=== PATIENT | female | born 1970 | race Caucasian/White ===

== ENCOUNTER 2016-06-22 20:02 | Outpatient (CLI) | payer OTHER ==
[2015-04-09 00:59] VITALS: BMI 36.6
[2016-06-22 20:18] LABS: BASOPHILS % (AUTO) 0.3 % (0.0-3.0); EOSINOPHILS # (AUTO) 0.2 K/ul (0.0-0.7); EOSINOPHILS % (AUTO) 2.3 % (0.0-7.0); HEMATOCRIT 43.3 % (37.0-47.0); HEMOGLOBIN 14.3 g/dl (12.0-16.0); IMMATURE GRANULOCYTE % (AUTO) 0.3 % (0.0-5.0); MEAN CORPUSCULAR HEMOGLOBIN 27.1 pg (27.0-31.0); MONOCYTES # (AUTO) 0.7 K/uL (0.4-2.0); MONOCYTES % (AUTO) 10.9 (0-10); NEUTROPHILS # (AUTO) 3.6 K/ul (2.0-6.9); NEUTROPHILS % (AUTO) 55.2; PLATELET COUNT 246 10^3/uL (140-440); RED BLOOD COUNT 5.28 10^6/ul (4.20-5.40); WHITE BLOOD COUNT 6.49 K/ul (4.6-10.2)
[2016-06-22 20:35] LABS: FLU INTERNAL QC INTERNAL QC VALID; RAPID FLU A NEGATIVE (NEGATIVE); RAPID FLU B NEGATIVE (NEGATIVE)
[2016-06-22 20:45] LABS: ALBUMIN 4.1 g/dL (3.4-5.0); ALBUMIN/GLOBULIN RATIO 1.21; BILIRUBIN,TOTAL 0.35 mg/dL (0.00-1.20); BUN/CREATININE RATIO 13.97; CALCIUM 9.6 mg/dL (8.2-10.2); CREATININE 0.93 mg/dL (0.60-1.30); TOTAL PROTEIN 7.5 g/dL (6.4-8.2)
--- NOTE | 2016-06-22 21:35 | DI ---
Exam: Two-view chest x-ray. Date: 06/22/2016. Comparison: 03/19/2012. HISTORY: Cough and shortness of breath. FINDINGS: Minor degenerative changes are seen in the thoracic spine. The lungs are clear with calc ified granulomas. Cardiac silhouette and pulmonary vasculature are normal. Impression: No acute intrathoracic findings. Old granulomatous disease.
== END 2016-06-22 20:03 | disposition home or self-care (01) ==
LOC: LAB 20:02
PROVIDERS: ATTEND Internal Medicine Geriatric Medicine
DX: R50.9 Fever, unspecified (principal); R05 Cough
CPT/HCPCS: 36415; 80053; 85025; 87651; 87804; 87880

== ENCOUNTER 2016-12-08 00:03 | Emergency (ER) ==
[2016-12-08 00:27] VITALS: BP 136/92; TEMP 97.8; BMI 39.9
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
== END 2016-12-08 02:00 | disposition home or self-care (01) ==
LOC: ED 00:03
DX: S30.0XXA Contusion of lower back and pelvis, initial encounter (principal); S09.90XA Unspecified injury of head, initial encounter; S19.9XXA Unspecified injury of neck, initial encounter; M79.1 Myalgia; V89.2XXA Person injured in unspecified motor-vehicle accident, traffic, initial encounter; F17.210 Nicotine dependence, cigarettes, uncomplicated
CPT/HCPCS: 99283

== ENCOUNTER 2016-12-18 10:02 | Outpatient (CLI) ==
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
== END 2016-12-18 10:03 | disposition home or self-care (01) ==
LOC: RAD 10:02
PROVIDERS: ATTEND Nurse Practitioner Family
DX: M54.5 Low back pain (principal)

== ENCOUNTER 2017-02-28 09:15 | Outpatient (RCR) ==
--- NOTE | 2017-02-07 15:07 | RS.OPPTDN ---
Subjective Date of Note: 02/07/17 Visit #: 9 Date of Evaluation: 01/16/17 Payer Source: Workman's Comp Treatment Diagnosis: Low back pain Current Subjective/complaints:: Patient says that tingling/numbness remains intermittent to the L LE to the posterior mid thigh. She says she went trick or treating with her grandkids last night and was frustrated that she could only walk short distances and then sit on a scooter to get to other areas of the neighborhood. She says once she stood for the last time to walk, she could barely advance the L or R leg due to them feeling heavy. 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 Pain Assessment - Pain Description Pain Location: low back Current Pain Intensity: 7-8/10 across the low back and into the L hip/SI region - Treatment Modality: Electrical Stim Unattended Parameters/Method Applied: HIVOLT 4 large pads (2 at the L SI region and 2 at the L and R lumbar paraspinals ) @ 170-200 pk volts x 20 mins Patient Position: Right Sidelying - Heat/Cryotherapy Treatment: Hot Pack (with estim ) Interventions - Exercise/Activities/Manual Therapy Exercises/Activities: Continued with gentler stretching to the L LE today: SKTC , heel cords, Hamstrings, lower trunk rotation, piriformis and added figure 4 x 4. Continued with trunk stability of: pillow squeezes 2 x 10. Isometric hip flexion and abd x 10. Educated patient on possible use of lumbar mechanical traction and benefits if referring MD is agreeable as mild anterior subluxation is a precaution. Total minutes of Exercise: 20 Manual Therapy: NA - Charges Total Direct Minutes: 20 Total Treatment Time: 40 Procedures billed for this date of service:: hp, estim (un), ex Assessment: Patient continues with radiating symptoms to the L LE only intermittently now and to the mid posterior thigh. She is unable to ambulate long distances and must sit often. 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 She is against surgical intervention at this time and does not wish to manage pain with progressive medication. She is demo improved luz elena to stretches and shows increased HS length as well as localizing L LE tingling/numbness. She may possibly benefit from gentle Lumbar traction. Patient Education: Education of diagnosis, Body/Joint mechanics, Home Exercise Program, Activity Modification Patient demonstrates compliance with HEP?: Yes Short Term Goals Goal #1: Pt independent in initial HEP. Goal to be met by: 01/31/17 Progress towards Goal:: Met Goal #2: Left LE radiating symptoms localized. Goal to be met by: 01/31/17 Progress towards Goal:: Progressing Goal #3: Pt able to tolerate light ADL's with min. increase in low back pain. Goal to be met by: 01/31/17 Progress towards Goal:: Progressing Goal #4: SLR equal bilaterally. Goal to be met by: 01/31/17 [employer] Operator Goals Goal #1: Pt knows HEP and to continue ex's to maintain functional level at D/C. Goal to be met by: 03/08/17 Goal #2: Score on Oswestry LBP scale improved to 15. Goal to be met by: 03/08/17 Goal #3: Pt able to return to work without limitations. Goal to be met by: 03/08/17 Goal #4: Pt able to tolerate prolonged sitting, standing, and walking w/o back pain. Goal to be met by: 03/08/17 Plan PLAN OF CARE EXPIRES ON:: 03/08/17 ORDER # VISITS AND/OR THROUGH DATE: 03/08/17 PLAN: Progress Exercises (Possible trial of traction)
--- NOTE | 2017-02-09 14:51 | RS.OPPTDN ---
Subjective Date of Note: 02/09/17 Visit #: 10 Date of Evaluation: 01/16/17 Payer Source: Workman's Comp Treatment Diagnosis: Low back pain Current Subjective/complaints:: Patient says she did feel better after last session with trunk rotation to the R, but says she now has burning and tingling feeling to the R SI region with L rotation. Pain Assessment - Pain Description Pain Location: low back Current Pain Intensity: 09/16 - Treatment Modality: Electrical Stim Unattended Parameters/Method Applied: hivolt 4 large pads to the L and R lumbar paraspinals and SI joints x 20 mins @ 200-225 pk volts Patient Position: Prone - Heat/Cryotherapy Treatment: Hot Pack Interventions - Exercise/Activities/Manual Therapy Exercises/Activities: Continued with gentler stretching to the L LE today: SKTC , heel cords, Hamstrings, avoided lower trunk rotation, piriformis and added figure 4 x 4. Continued with trunk stability of: pillow squeezes 2 x 10. Isometric hip flexion and abd x 10. QS x 10 reps. Total minutes of Exercise: 16 Manual Therapy: NA - Charges Total Direct Minutes: 16 Total Treatment Time: 36 Procedures billed for this date of service:: hp, estim (un), ex Assessment: Patient luz elena treatment better today and higher level of estim intensity. Juliet did have temporary tingling to the L LE after laying prone with modalities and preparing for exercises in supine. Once standing, full feeling returned. Pillows were placed so that even though she was prone, she was in neutral position. Patient Education: Education of diagnosis, Body/Joint mechanics, Home Exercise Program Patient demonstrates compliance with HEP?: Yes Short Term Goals Goal #1: Pt independent in initial HEP. Goal to be met by: 01/31/17 Progress towards Goal:: Met Goal #2: Left LE radiating symptoms localized. Goal to be met by: 01/31/17 Progress towards Goal:: Progressing Comments:: Pain is only across low back currently Goal #3: Pt able to tolerate light ADL's with min. increase in low back pain. Goal to be met by: 01/31/17 Progress towards Goal:: Progressing Goal #4: SLR equal bilaterally. Goal to be met by: 01/31/17 [facility] Goals Goal #1: Pt knows HEP and to continue ex's to maintain functional level at D/C. Goal to be met by: 03/08/17 Goal #2: Score on Oswestry LBP scale improved to 15. Goal to be met by: 03/08/17 Goal #3: Pt able to return to work without limitations. Goal to be met by: 03/08/17 Goal #4: Pt able to tolerate prolonged sitting, standing, and walking w/o back pain. Goal to be met by: 03/08/17 Plan PLAN OF CARE EXPIRES ON:: 03/08/17 ORDER # VISITS AND/OR THROUGH DATE: 03/08/17 PLAN: Continue Plan of Care (Patient may benefit from low level lumbar mechanical traction)
--- NOTE | 2017-02-12 16:23 | RS.OPPTDN ---
Subjective Date of Note: 02/12/17 Visit #: 10 Date of Evaluation: 01/16/17 Payer Source: Workman's Comp Treatment Diagnosis: Low back pain Current Subjective/complaints:: Patient says she feels that laying prone seemed to help her at her last visit. She says she began to have some tingling to the hips, but felt pain existed only in her low back/waistline. She requests to lay prone again today due to her feeling reduced back pain and only had mild symptoms across the low back over the weekend. Pain Assessment - Pain Description Pain Location: low back Current Pain Intensity: 3/10, milder today just across the lumbar region and tingling to the hips - Treatment Modality: Electrical Stim Unattended Parameters/Method Applied: hivolt 4 large pads @ 230-245pk volts to the bilateral lumbar paraspinals and 2 to the L SI region x 20 mins Patient Position: Prone - Heat/Cryotherapy Treatment: Hot Pack Interventions - Exercise/Activities/Manual Therapy Exercises/Activities: Continues with passive stretching of bilateral LE: SKTC, HS, Piriformis, Fig 4, x 4. Patient performs: pillow squeezes, isometric hip flexion (in hooklying), isometric hip abd, QS bilaterally x 10. Total minutes of Exercise: 16 Manual Therapy: NA Total minutes of Manual Therapy: na - Charges Total Direct Minutes: 16 Total Treatment Time: 36 Procedures billed for this date of service:: hp, estim (un), ex Assessment: Patient admitting improved back pain to now very light to mild. She experienced tingling to both hips with prone position,but admitted these symptoms were much more tolerable than experiencing the pain being sidelying. She recalls improved ambulation due to decreased pain level today. Patient Education: Education of diagnosis, Body/Joint mechanics Patient demonstrates compliance with HEP?: Yes Short Term Goals Goal #1: Pt independent in initial HEP. Goal to be met by: 01/31/17 Progress towards Goal:: Met Goal #2: Left LE radiating symptoms localized. Goal to be met by: 01/31/17 Progress towards Goal:: Progressing Goal #3: Pt able to tolerate light ADL's with min. increase in low back pain. Goal to be met by: 01/31/17 Progress towards Goal:: Progressing Goal #4: SLR equal bilaterally. Goal to be met by: 01/31/17 Progress towards Goal:: Progressing Assisted Goals Goal #1: Pt knows HEP and to continue ex's to maintain functional level at D/C. Goal to be met by: 03/08/17 Progress towards goal: Progressing Goal #2: Score on Oswestry LBP scale improved to 15. Goal to be met by: 03/08/17 Progress towards goal: Progressing Goal #3: Pt able to return to work without limitations. Goal to be met by: 03/08/17 Goal #4: Pt able to tolerate prolonged sitting, standing, and walking w/o back pain. Goal to be met by: 03/08/17 Plan PLAN OF CARE EXPIRES ON:: 03/08/17 ORDER # VISITS AND/OR THROUGH DATE: 03/08/17 PLAN: Patient to continue with modalities in prone due to patient request. She is to return to Dr. Finch tomorrow for follow up.
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
--- NOTE | 2017-02-16 11:21 | RS.OPPTDN ---
Subjective Date of Note: 02/16/17 Visit #: 12 Date of Evaluation: 01/16/17 Payer Source: Workman's Comp Treatment Diagnosis: Low back pain Current Subjective/complaints:: Patient says her back pain is not C/c presently. She c/o L LE tingling that worsens with prolonged sitting, standing , and walking. She desires to return to work, but also admits that her symptoms would hinder her duties. She is unable to play on the floor with her grandchildren, which bothers her greatly. She continues to have the feeling of L LE give way when tingling magnifies. Juliet plans to contact her orthopaedic (which she was referred to) about other options for control of radicular symptoms in order to return to work and take part in caring and playing with grandchildren. Pain Assessment - Pain Description Pain Location: low back Pain Description: Tightness, Radiating Current Pain Intensity: 3/10, milder today just across the lumbar region,but increased ting to L LE - Treatment Modality: Electrical Stim Unattended Parameters/Method Applied: hivolt 4 large pads 2 at the L SI region/hip, 2 at the lumbar paraspinals @ 165-235 pk volts x 20 mins Patient Position: Right Sidelying Comments: sidelying/prone - Heat/Cryotherapy Treatment: Hot Pack (with estim) Interventions - Exercise/Activities/Manual Therapy Exercises/Activities: Continued with L LE long axis hip distraction 2x4 (1 set prior to stretches and 1 set at end). Continues with passive stretching of bilateral LE: SKTC, HS, Piriformis, Fig 4, x 4. Patient performs: pillow squeezes, isometric hip flexion (in hooklying), isometric hip abd, QS bilaterally x 10. Total minutes of Exercise: 22 Manual Therapy: NA - Charges Total Direct Minutes: 22 Total Treatment Time: 42 Procedures billed for this date of service:: hp, estim (un), ex Assessment: Juliet now presents with only slight to mild LBP, but with return of Patient with unchanged symptoms to the L LE. Leg length is equal today. She is unable to luz elena amb longer than about 500-600 ft. Prolonged sitting is also intolerable. She has had mild relief of back pain, but no significant change in radiating symptoms to the L LE. She will be planning to get an earlier appt with Dr. Patterson to address her continued symptoms. Patient's gait , however, has improved as far as more equal WB and increased to more normal speed today. Patient Education: Education of diagnosis, Activity Modification, Education of Plan of Care Patient demonstrates compliance with HEP?: Yes Short Term Goals Goal #1: Pt independent in initial HEP. Goal to be met by: 01/31/17 Progress towards Goal:: Met Goal #2: Left LE radiating symptoms localized. Goal to be met by: 01/31/17 Progress towards Goal:: Regressing Comments:: Patient has recently felt ting return to the foot mostly posteriorally Goal #3: Pt able to tolerate light ADL's with min. increase in low back pain. Goal to be met by: 01/31/17 Progress towards Goal:: Progressing Goal #4: SLR equal bilaterally. Goal to be met by: 01/31/17 Progress towards Goal:: Progressing Scale Adjuster Goals Goal #1: Pt knows HEP and to continue ex's to maintain functional level at D/C. Goal to be met by: 03/08/17 Progress towards goal: Progressing Goal #2: Score on Oswestry LBP scale improved to 15. Goal to be met by: 03/08/17 Progress towards goal: Progressing Goal #3: Pt able to return to work without limitations. Goal to be met by: 03/08/17 Goal #4: Pt able to tolerate prolonged sitting, standing, and walking w/o back pain. Goal to be met by: 03/08/17 Plan PLAN OF CARE EXPIRES ON:: 03/08/17 ORDER # VISITS AND/OR THROUGH DATE: 03/08/17 PLAN: Patient to make an earlier follow up with Dr. Patterson and address continued concerns. She was encouraged to continue trunk stability exercises for home and may hold treatment after next week.
--- NOTE | 2017-02-19 10:45 | RS.OPPTDN ---
Subjective Date of Note: 02/19/17 Visit #: 14 Date of Evaluation: 01/16/17 Payer Source: Workman's Comp Treatment Diagnosis: Low back pain Current Subjective/complaints:: Patient says she cleaned her house over the weekend and had used her TENS unit the entire time. Juliet says she was trying to increase her WBing so that she can simulate return to work standing. She reports her back was much better with it, but did not improve L LE symptoms. She reports having trouble controlling her bladder and urgency. She says she does not want to rely on pain medication or her TENS, but it does help her back. Pain Assessment - Pain Description Pain Location: low back Pain Description: Tightness, Radiating Current Pain Intensity: 3/10, milder today just across the lumbar region,but increased ting to L LE - Treatment Modality: Electrical Stim Unattended Parameters/Method Applied: hivolt lumbar paraspinals and L SI 4 large pads @ 205 -235 pk volts x 20 mins Patient Position: Right Sidelying - Heat/Cryotherapy Treatment: Hot Pack Interventions - Exercise/Activities/Manual Therapy Exercises/Activities: Continued with passive stretching to bilateral LE: SKTC, HS, Piriformis, heel cords, Fig 4 x 4 each. She performs: QS, Pillow squeezes , isometric hip abd in hooklying, isometric hip flexion x 10. Total minutes of Exercise: 15 Manual Therapy: NA - Charges Total Direct Minutes: 15 Total Treatment Time: 35 Procedures billed for this date of service:: hp, estim (un), ex Assessment: Patient experienced increased pain and tingling/numbness (L LE) with cleaning and prepping her home for Thanksgiving. She relied on her TENS unit for her back and L hip in which she did have relief and not the anticipated pain to her back that she expected, but did have increased tingling/ numbness to the L LE. Patient Education: Body/Joint mechanics, Home Exercise Program Patient demonstrates compliance with HEP?: Yes Short Term Goals Goal #1: Pt independent in initial HEP. Goal to be met by: 01/31/17 Progress towards Goal:: Met Goal #2: Left LE radiating symptoms localized. Goal to be met by: 01/31/17 Progress towards Goal:: Regressing Goal #3: Pt able to tolerate light ADL's with min. increase in low back pain. Goal to be met by: 01/31/17 Progress towards Goal:: Progressing Goal #4: SLR equal bilaterally. Goal to be met by: 01/31/17 Progress towards Goal:: Progressing Intermediate Goals Goal #1: Pt knows HEP and to continue ex's to maintain functional level at D/C. Goal to be met by: 03/08/17 Progress towards goal: Progressing Goal #2: Score on Oswestry LBP scale improved to 15. Goal to be met by: 03/08/17 Progress towards goal: Progressing Goal #3: Pt able to return to work without limitations. Goal to be met by: 03/08/17 Goal #4: Pt able to tolerate prolonged sitting, standing, and walking w/o back pain. Goal to be met by: 03/08/17 Plan PLAN OF CARE EXPIRES ON:: 03/08/17 ORDER # VISITS AND/OR THROUGH DATE: 03/08/17 PLAN: Patient contacting her MD today to see if she can follow up with him sooner due to worsening radiculopathy and limited ADLs/prolonged WBing.
--- NOTE | 2017-02-21 11:45 | RS.OPPTDN ---
Subjective Date of Note: 02/21/17 Visit #: 15 Date of Evaluation: 01/16/17 Payer Source: Workman's Comp Treatment Diagnosis: Low back pain Current Subjective/complaints:: Patient says she was able to sleep in bed for the first time last night after taking Flexeril. She says she was able to sleep longer than she had, but awakened on her stomach which increased her L LE tingling. She admitted improved back pain however. Juliet says she now relies on TENS unit and uses often to perform ADLs/walking. She is eager to attend follow up scheduled for Sunday and discuss Lyrica refill. Pain Assessment - Pain Description Pain Location: low back Pain Description: Tightness, Radiating Current Pain Intensity: 3/10, milder today just across the lumbar region,but increased ting to L LE - Treatment Modality: Electrical Stim Unattended Parameters/Method Applied: IFC to low back and bilateral SI @ 23 pk volts x 20 mins Patient Position: Right Sidelying - Heat/Cryotherapy Treatment: Hot Pack Interventions - Exercise/Activities/Manual Therapy Exercises/Activities: Provided information about ordering extra electrods for her TENS. Continued with passive stretching to bilateral LE: SKTC, HS, Piriformis, heel cords, Fig 4 x 4 each. She performs: QS, Pillow squeezes, isometric hip abd in hooklying, isometric hip flexion x 10. Total minutes of Exercise: 20 Manual Therapy: NA - Charges Total Direct Minutes: 20 Total Treatment Time: 40 Procedures billed for this date of service:: hp, estim(un), ex Assessment: Patient amb with less WBing on L LE today and slower gait. Modified treatment to include IFC to sweep entire LB and hips. She admits improved back pain level after treatment, but no change in radicular symptoms. Moderate muscle guarding is felt at lumbar paraspinals. Patient Education: Education of diagnosis, Body/Joint mechanics, Home Exercise Program Patient demonstrates compliance with HEP?: Yes Short Term Goals Goal #1: Pt independent in initial HEP. Goal to be met by: 01/31/17 Progress towards Goal:: Met Goal #2: Left LE radiating symptoms localized. Goal to be met by: 01/31/17 Progress towards Goal:: No Change Goal #3: Pt able to tolerate light ADL's with min. increase in low back pain. Goal to be met by: 01/31/17 Progress towards Goal:: Progressing Comments:: While using TENS Goal #4: SLR equal bilaterally. Goal to be met by: 01/31/17 Progress towards Goal:: Met Retirement Goals Goal #1: Pt knows HEP and to continue ex's to maintain functional level at D/C. Goal to be met by: 03/08/17 Progress towards goal: Progressing Goal #2: Score on Oswestry LBP scale improved to 15. Goal to be met by: 03/08/17 Progress towards goal: Progressing Goal #3: Pt able to return to work without limitations. Goal to be met by: 03/08/17 Goal #4: Pt able to tolerate prolonged sitting, standing, and walking w/o back pain. Goal to be met by: 03/08/17 Progress towards goal: No Change Plan PLAN OF CARE EXPIRES ON:: 03/08/17 ORDER # VISITS AND/OR THROUGH DATE: 03/08/17 PLAN: Patient to attend follow up Feb 23. May hold further sessions once seeing MD and no significant change to radicular symptoms.
--- NOTE | 2017-02-26 09:54 | RS.OPPTDN ---
Subjective Date of Note: 02/23/17 Visit #: 15 Date of Evaluation: 01/16/17 Payer Source: Workman's Comp Treatment Diagnosis: Low back pain Current Subjective/complaints:: Patient says she attended follow up this morning with Dr. Patterson's PA. She reports she continues to be frustrated about her options and functional limitations right now. She reports tingling to the L thigh posteriorarlly which extends to the foot with prolonged standing , sitting, walking. Her next option (per MD) is pain management for an injection, but she is looking into obtaining a second opinion. - Treatment Modality: Electrical Stim Unattended Parameters/Method Applied: IFC @ 21 pk volts to the lumbar and SI joint area x 20 mins Patient Position: Right Sidelying - Heat/Cryotherapy Treatment: Hot Pack Interventions - Exercise/Activities/Manual Therapy Exercises/Activities: Provided information about ordering extra electrodes for her TENS. Continued with passive stretching to bilateral LE: SKTC, HS, Piriformis, heel cords, Fig 4 x 4 each. She performs: QS, Pillow squeezes, isometric hip abd in hooklying, isometric hip flexion x 10. Total minutes of Exercise: 14 Manual Therapy: NA - Charges Total Direct Minutes: 14 Total Treatment Time: 34 Procedures billed for this date of service:: hp, estim (un), ex Assessment: Patient maintaining low level for back pain, but remains with intermittent tingling to the L foot posteriorally and constantly to the upper thigh. She does experience improved back pain with modification to IFC. Patient obtaining a second opinion in order to get relief and hopefully return to work. Patient Education: Education of diagnosis Short Term Goals Goal #1: Pt independent in initial HEP. Goal to be met by: 01/31/17 Progress towards Goal:: Met Goal #2: Left LE radiating symptoms localized. Goal to be met by: 01/31/17 Progress towards Goal:: No Change Goal #3: Pt able to tolerate light ADL's with min. increase in low back pain. Goal to be met by: 01/31/17 Progress towards Goal:: Progressing Goal #4: SLR equal bilaterally. Goal to be met by: 01/31/17 Progress towards Goal:: Met Barrel Repairer Goals Goal #1: Pt knows HEP and to continue ex's to maintain functional level at D/C. Goal to be met by: 03/08/17 Progress towards goal: Progressing Goal #2: Score on Oswestry LBP scale improved to 15. Goal to be met by: 03/08/17 Progress towards goal: Progressing Goal #3: Pt able to return to work without limitations. Goal to be met by: 03/08/17 Goal #4: Pt able to tolerate prolonged sitting, standing, and walking w/o back pain. Goal to be met by: 03/08/17 Progress towards goal: No Change Plan PLAN OF CARE EXPIRES ON:: 03/08/17 ORDER # VISITS AND/OR THROUGH DATE: 03/08/17 PLAN: Patient's MD requested her to continue her PT order until done (18 full visits). Continue IFC for back pain reduction and stability exercises.
--- NOTE | 2017-02-26 14:28 | RS.OPPTDN ---
Subjective Date of Note: 02/26/17 Visit #: 17 Date of Evaluation: 01/16/17 Payer Source: Workman's Comp Treatment Diagnosis: Low back pain Current Subjective/complaints:: Juliet reports back pain is very low this morning. She says tingling is present in her L upper leg and she does not feel Lyrica has started to "kick in" yet. She says she has only been taking it a few days. Also, c/o tingling down the R arm to the fingers. She says this is new and has started about 1-2 weeks ago. Pain Assessment - Pain Description Pain Location: slight to the low back, L posterior thigh tingling/numbness, R entire UE tingling - Treatment Modality: Electrical Stim Unattended Parameters/Method Applied: IFC @ 22 pk volts surrounding the mid thoracic to bilateral SI joints x 20 mins Patient Position: Right Sidelying - Heat/Cryotherapy Treatment: Hot Pack Interventions - Exercise/Activities/Manual Therapy Exercises/Activities: Patient receives passive stretching bilaterally: SKTC, HS , Piriformis, Fig 4 x 4 ea. She performs ball squeezes, isometric hip flexion, alternate LE lift with 1 1/2#ea, pelvic tilts, bridging, hooklying hip abd with blue tband for L, QS for L. Total minutes of Exercise: 18 Manual Therapy: NA - Charges Total Direct Minutes: 18 Total Treatment Time: 38 Procedures billed for this date of service:: hp, estim (un), ex Assessment: Patient experiencing improved lower back pain and decreased mid thoracic pain today as a result of treatment today. Moderate muscle guarding to the mid to lower thoracic through palpation prior to modalities. She is able to demo improved L HS flexibility, but did also have mild R HS tightness that did get better with stretching passively. Patient Education: Education of diagnosis, Body/Joint mechanics, Home Exercise Program, Education of Plan of Care Patient demonstrates compliance with HEP?: Yes Short Term Goals Goal #1: Pt independent in initial HEP. Goal to be met by: 01/31/17 Progress towards Goal:: Met Goal #2: Left LE radiating symptoms localized. Goal to be met by: 01/31/17 Progress towards Goal:: No Change Goal #3: Pt able to tolerate light ADL's with min. increase in low back pain. Goal to be met by: 01/31/17 Progress towards Goal:: Progressing Goal #4: SLR equal bilaterally. Goal to be met by: 01/31/17 Progress towards Goal:: Met M[facility] Goals Goal #1: Pt knows HEP and to continue ex's to maintain functional level at D/C. Goal to be met by: 03/08/17 Progress towards goal: Progressing Goal #2: Score on Oswestry LBP scale improved to 15. Goal to be met by: 03/08/17 Progress towards goal: Progressing Goal #3: Pt able to return to work without limitations. Goal to be met by: 03/08/17 Goal #4: Pt able to tolerate prolonged sitting, standing, and walking w/o back pain. Goal to be met by: 03/08/17 Progress towards goal: No Change Plan PLAN OF CARE EXPIRES ON:: 03/08/17 ORDER # VISITS AND/OR THROUGH DATE: 03/08/17 PLAN: Patient to continue x 1 more session to complete orders.
--- NOTE | 2017-02-28 11:38 | RS.OPPTDN ---
Subjective Date of Note: 02/28/17 Visit #: 18 Date of Evaluation: 01/16/17 Payer Source: Workman's Comp Treatment Diagnosis: Low back pain Current Subjective/complaints:: Patient says she is still having upper back tightness as well as now having a "warmth" feeling to the L upper thigh as she was washing dishes yesterday. She says this is new and as she say down and put on her TENS unit, this subsided. She says she has been taking muscle relaxer twice daily now. Pain Assessment - Pain Description Pain Location: upper to mid back, only slight to low back and tingling to the L upper leg. Goes to the foot with prolonged sitting, standing, walking, and laying R sidelying. - Treatment Modality: Electrical Stim Unattended Parameters/Method Applied: IFC @ 19-21 pk volts to include mid and upper back and lumbar/SI region x 20 mins Patient Position: Right Sidelying - Heat/Cryotherapy Treatment: Hot Pack Interventions - Exercise/Activities/Manual Therapy Exercises/Activities: Patient receives passive stretching bilaterally: SKTC, HS , Piriformis, Fig 4 x 4 ea. She performs ball squeezes, isometric hip flexion, alternate LE lift with 1 1/2#ea, pelvic tilts, bridging, hooklying hip abd with blue tband for L, QS for L. Received additional HEP and included scap retraction with green and blue tbands. Patient performs reassessment for Oswestry LBP Scale. Total minutes of Exercise: 21 Manual Therapy: NA - Charges Total Direct Minutes: 21 Total Treatment Time: 41 Procedures billed for this date of service:: hp, estim (un), ex Assessment: Patient demo improved score on Oswestry from eval to 21 or 42% impairment (Eval was 30 or 60% impairment). She admits improved back pain, but continued tingling to the L upper thigh posteriorally and can extend to the foot with prolonged WBing activity. She is relying on TENS unit all day and zanaflex at this point. She is obtaining a second opinion because she is not seeing significant enough improvement to return to work. She also is having new symptoms of tingling to the R UE as well and temperature changes to the L LE (warmth/cold). Patient Education: Home Exercise Program, Education of Plan of Care Patient demonstrates compliance with HEP?: Yes Short Term Goals Goal #1: Pt independent in initial HEP. Goal to be met by: 01/31/17 Progress towards Goal:: Met Goal #2: Left LE radiating symptoms localized. Goal to be met by: 01/31/17 Progress towards Goal:: No Change Goal #3: Pt able to tolerate light ADL's with min. increase in low back pain. Goal to be met by: 01/31/17 Progress towards Goal:: Progressing Comments:: while using TENS Goal #4: SLR equal bilaterally. Goal to be met by: 01/31/17 Progress towards Goal:: Met Prison Goals Goal #1: Pt knows HEP and to continue ex's to maintain functional level at D/C. Goal to be met by: 03/08/17 Progress towards goal: Met Goal #2: Score on Oswestry LBP scale improved to 15. Goal to be met by: 03/08/17 Progress towards goal: Progressing Comments: 21 Goal #3: Pt able to return to work without limitations. Goal to be met by: 03/08/17 Progress towards goal: No Change Goal #4: Pt able to tolerate prolonged sitting, standing, and walking w/o back pain. Goal to be met by: 03/08/17 Progress towards goal: No Change Plan PLAN OF CARE EXPIRES ON:: 03/08/17 ORDER # VISITS AND/OR THROUGH DATE: 03/08/17 PLAN: Patient has completed order at this time. No significant change to justify further therapy. Recommend patient to contact us once she has received second opinion.
== END 2017-03-08 ==
PROVIDERS: ATTEND Orthopaedic Surgery Orthopaedic Surgery of the Spine
DX: M54.5 Low back pain (principal)

== ENCOUNTER 2017-10-20 18:04 | Emergency (ER) | payer OTHER ==
[2017-10-20 18:12] VITALS: BP 138/89; TEMP 98.9; BMI 40.3
--- NOTE | 2017-10-20 18:40 | ED.PDOC ---
General Stated Complaint: patient states that she fell twisting the left leg underneath her. Has pain on the left ankle and lower leg. Denies hitting head. was able to bear weight for few minutes but not now. Took Ultram at home x 1 prior to arrival Time Seen by Physician: 18:35 Mode of Arrival: Walk-In Information Source: Patient Nursing and Triage Documentation Reviewed and Agree: Yes Does patient meet sepsis criteria?: No System Inflammatory Response Syndrome: Not Applicable <COLETTE MCKINNEY - Last Filed: 10/20/17 18:35> <NENO EID - Last Filed: 10/20/17 19:45> ED Provider: Dr. NENO EID Chief Complaint: Foot Pain/Injury Primary Care Provider: DES GILES Sepsis Protocol: For patient's 13 years and over: Temp is 96.8 and below OR 101 and greater Pulse >90 BPM Resp >20/minute Acutely Altered Mental Status Are patient's symptoms suggestive of a new infection, such as: -Pneumonia -Skin, Soft Tissue -Endocarditis -UTI -Bone, Joint Infection -Implantable Device -Acute Abdominal Infection -Wound Infection -Meningitis -Blood Stream Catheter Infection -Unknown Review of Systems - Review Of Systems Constitutional: Reports: No symptoms Musculoskeletal: Reports: Joint pain, Joint swelling (Left ankle ) Neurological: Reports: Anxiety All Other Systems: Reviewed and Negative <COLETTE MCKINNEY - Last Filed: 10/20/17 18:35> Past Medical History - Past Medical History Previously Healthy: Yes Endocrine: Reports: None Cardiovascular: Reports: None Respiratory: Reports: None Hematological: Reports: None Gastrointestinal: Reports: None Genitourinary: Reports: None Neuro/Psych: Reports: None Musculoskeletal: Reports: 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) Cancer: Reports: None Last Menstrual Period: 2010 - Surgical History General Surgical History: Reports: Hysterectomy, Other ( right cataract surgery) - Family History Family History: Reports: None - Social History Smoking Status: Current every day smoker Hx Substance Use: No Alcohol Screening: Occasionally - Immunizations Tetanus Shot up to Date: Yes <COLETTE MCKINNEY - Last Filed: 10/20/17 18:35> Physical Exam - Physical Exam Appearance: Ill-appearing, Obese Ill-appearing: Mild Pain Distress: Moderate Cardiovascular: Tachycardia Musculoskeletal: Limited ROM (Left ankle ) Skin: Warm, Dry Neurological: Sensation intact, Alert, Oriented Psychiatric: Anxious <COLETTE MCKINNEY - Last Filed: 10/20/17 18:35> Interpretation - Radiology Interpretation Radiology Interpretation By: Radiologist Radiology Results: Positive Exam Interpreted: Other (Left fibular fracture non displaced. ) <COLETTE MCKINNEY - Last Filed: 10/20/17 18:35> - Radiology Interpretation Radiology Results: Negative (no fracture per Radiologist) Exam Interpreted: Other <NENO EID - Last Filed: 10/20/17 19:45> Critical Care Note - Critical Care Note Total Time (mins): 30 <NENO EID - Last Filed: 10/20/17 19:45> - Course Orders, Labs, Meds: Orders Category Date Time Status ANKLE, LEFT MIN 3 VIEWS Stat RADS 10/20/17 18:26 Completed TIBIA/FIBULA, LEFT 2 VIEWS Stat RADS 10/20/17 18:26 Completed Vital Signs: Temp Pulse Resp BP Pulse Ox 10/20/17 18:04 98.9 F 108 H 20 138/89 97 Departure <COLETTE MCKINNEY - Last Filed: 10/20/17 18:35> - Departure Time of Disposition: 19:43 Pt referred to PMD for follow-up: Yes IPMP verified?: Yes Disposition Discussed With: Patient <NENO EID - Last Filed: 10/20/17 19:45> - Departure Disposition: HOME SELF-CARE Discharge Problem: Injury of foot Instructions: Ankle Sprain (DC) Condition: Stable Additional Instructions: Rest Keep f/u with PMD Prescriptions: Hydrocodone Bit/Acetaminophen [[place] 7.5-325] 1 each PO Q8H #10 tablet Allergies/Adverse Reactions: Allergies NSAIDS (Non-Steroidal Anti-Inflamma Adverse Reaction (Verified 10/20/17 18:13) states "cannot take due to colitis" Home Medications: Ambulatory Orders Hydrocodone Bit/Acetaminophen [[place] 7.5-325] 1 each PO Q8H #10 tablet 10/20/17
--- NOTE | 2017-10-20 18:59 | DI ---
Exam: Two views of the left tibia and fibula. Comparison: None available. Reason for exam: Trauma from fall. FINDINGS: No acute fracture or malalignment. The cortices are intact. No unexplained calcific soft tissue density or radiopaque retained foreign body. Impression: No acute fracture or malalignment in the left tibia or fibula
--- NOTE | 2017-10-20 19:04 | DI ---
EXAM: Left ankle, three views, 10/20/2017 HISTORY: Trauma COMPARISON: 10/20/2017 FINDINGS / IMPRESSION: The visualized osseous structures appear intact. Anatomic alignment appears within normal limits. There is no evidence of fracture or dislocation. No acute osseous abnormality.
== END 2017-10-20 19:53 | disposition home or self-care (01) ==
LOC: ED 18:04
DX: S93.402A Sprain of unspecified ligament of left ankle, initial encounter (principal); W19.XXXA Unspecified fall, initial encounter; F17.210 Nicotine dependence, cigarettes, uncomplicated
CPT/HCPCS: 99282

== ENCOUNTER 2017-10-22 13:22 | Outpatient (CLI) ==
--- NOTE | 2017-10-22 15:08 | DI ---
EXAM: Four views of the left knee. History: Left knee pain. Findings: No acute fracture or dislocation. Superior patellar enthesiophyte. Joint spaces are rela tively preserved. No abnormal calcifications or radiopaque foreign bodies. Impression: 1. No acute osseous abnormality. 2. Superior patellar enthesiopathy. 3. No significant degenerative joint disease.
== END 2017-10-22 13:23 | disposition home or self-care (01) ==
LOC: RAD 13:22
PROVIDERS: ATTEND Emergency Medicine
DX: M25.562 Pain in left knee (principal)

== ENCOUNTER 2018-09-11 16:19 | Outpatient (CLI) | payer OTHER ==
[2018-09-11 16:42] VITALS: BMI 42.7
== END 2018-09-11 16:31 | disposition critical access hospital (66) ==
LOC: AMBL 16:19
PROVIDERS: ATTEND Emergency Medicine
DX: T17.998A Other foreign object in respiratory tract, part unspecified causing other injury, initial encounter (principal); T65.891A Toxic effect of other specified substances, accidental (unintentional), initial encounter; R06.02 Shortness of breath

== ENCOUNTER 2018-09-11 16:27 | Emergency (ER) ==
[2018-09-11 16:42] VITALS: BP 130/103; TEMP 96.4; BMI 42.7
--- NOTE | 2018-09-11 16:48 | ED.PDOC ---
General ED Provider: Dr. RAYSA MAY Chief Complaint: Shortness of Air Stated Complaint: opening a chlorine tab can for pool accidentaly took one breath of vaporCalled poison yariel brocke the instructions.No acute distress.Here at er Sat is 98,VS stable,no stridoe or wheezing present,Talks full sentences,Normal cardiac function. Time Seen by Physician: 16:50 Mode of Arrival: Walk-In Information Source: Patient, EMT Exam Limitations: No limitations [facility] Documentation Reviewed and Agree: Yes Does patient meet sepsis criteria?: No System Inflammatory Response Syndrome: Not Applicable Sepsis Protocol: For patient's 13 years and over: Temp is 96.8 and below OR 101 and greater Pulse >90 BPM Resp >20/minute Acutely Altered Mental Status Are patient's symptoms suggestive of a new infection, such as: -Pneumonia -Skin, Soft Tissue -Endocarditis -UTI -Bone, Joint Infection -Implantable Device -Acute Abdominal Infection -Wound Infection -Meningitis -Blood Stream Catheter Infection -Unknown Respiratory Complaint Exam - Respiratory Complaint/Exam Onset/Duration: brief,momentary inhalation of chlorie/pool/vapor. Symptoms Are: Resolved Timing: Intermittent Initial Severity: Moderate Current Severity: Mild Location: Throat Character: Reports: Non-productive cough Aggravating: Reports: None Alleviating: Reports: Upright position, Spontaneous resolution History of Healthcare-Acquired Pneumonia: No Related Surgical History: Reports: None Pulmonary Embolism Risk Factors: None Cardiac Risk Factors: Reports: None Pseudomonas Risk Factors: Reports: None Tuberculosis Risk Factors: Reports: None Status Asthmaticus Risk Factors: Reports: None Home Oxygen Use: No Recent Stress Test: No Recent Echo/LV Function: No Current Antibiotic Use: No Respiratory Distress: None Dysphagia Present: No Stridor Present: No JVD Present: No Accessory Muscle Use: No Retractions: Not Present Diminished Breath Sounds: No Sinus Tenderness: None Grunting Respirations: No Kussmaul Respirations: No Differential Diagnoses: Asthma Review of Systems - Review Of Systems Constitutional: Reports: No symptoms Eyes: Reports: No symptoms Respiratory: Reports: Cough, Other Cardiac: Reports: No symptoms GI: Reports: No symptoms : Reports: No symptoms Musculoskeletal: Reports: No symptoms Neurological: Reports: No symptoms Endocrine: Reports: No symptoms Hematologic/Lymphatic: Reports: No symptoms All Other Systems: Reviewed and Negative Past Medical History - Past Medical History Previously Healthy: Yes Endocrine: Reports: None Cardiovascular: Reports: None Respiratory: Reports: None Hematological: Reports: None Gastrointestinal: Reports: None Genitourinary: Reports: None Neuro/Psych: Reports: None Musculoskeletal: Reports: 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) Cancer: Reports: None Last Menstrual Period: hysterectomy - Surgical History General Surgical History: Reports: Hysterectomy, Other ( right cataract surgery) - Family History Family History: Reports: None - Social History Smoking Status: Current every day smoker Hx Substance Use: No Alcohol Screening: Occasionally Physical Exam - Physical Exam Appearance: Well-appearing Ill-appearing: None Pain Distress: None Eyes: QIANA, EOMI, Conjunctiva clear ENT: Ears normal, Nose normal, Oropharynx normal Neck: Supple Respiratory: Airway patent, Breath sounds clear, Breath sounds equal Cardiovascular: RRR, Pulses normal, No rub, No murmur GI/: Soft, Nontender, No masses, Bowel sounds normal, No Organomegaly Musculoskeletal: Normal strength, ROM intact, No edema, No calf tenderness Skin: Warm, Dry, Normal color Neurological: Sensation intact, Motor intact, Reflexes intact, Alert, Oriented Psychiatric: Affect appropriate Re-Evaluation - Re-Evaluation Time of Re-Evaluation: 16:55 (pt observed at ER,92.Fluids) Status: Improved Vital Signs Stable: Yes Appearance: NAD Lungs: Clear Skin: Warm and Dry Neuro: Alert and Oriented X3 CV: RRR - Re-Evaluation Time of Re-Evaluation: 18:06 (NaHCO3 neb toleated well) Status: Improved Vital Signs Stable: Yes (feeling better,no wheezing,no systemic signs/symptoms) Appearance: NAD Skin: Warm and Dry Neuro: Alert and Oriented X3 CV: RRR Critical Care Note - Critical Care Note Total Time (mins): 0 Course - Course Hematology/Chemistry: 09/11/18 17:45 09/11/18 17:45 Orders, Labs, Meds: Lab Review 09/11/18 09/11/18 17:45 17:45 WBC 11.22 H RBC 4.75 Hgb 13.0 Hct 40.8 MCV 85.9 MCH 27.4 MCHC 31.9 RDW Coeff of Ronak 14.6 Plt Count 239 Immature Gran % (Auto) 0.4 Neut % (Auto) 67.3 Lymph % (Auto) 25.4 Rains % (Auto) 5.6 Eos % (Auto) 1.0 Baso % (Auto) 0.3 Immature Gran # (Auto) 0.0 Neut # (Auto) 7.6 H Lymph # (Auto) 2.9 Rains # (Auto) 0.6 Eos # (Auto) 0.1 Baso # (Auto) 0.0 Sodium 140.3 Potassium 3.09 L Chloride 104.7 Carbon Dioxide 24.4 Anion Gap 14.29 BUN 12.3 Creatinine 0.86 Estimated GFR (MDRD) 70.00 BUN/Creatinine Ratio 14.30 Glucose 162.7 H Calcium 8.84 Total Bilirubin 0.27 AST 27.6 ALT 38.8 H Alkaline Phosphatase 91.1 Total Protein 6.95 Albumin 4.21 Globulin 2.74 Albumin/Globulin Ratio 1.53 Orders Category Date Time Status NEBULIZER TREATMENT Stat CARDIO 09/11/18 17:32 Completed NEBULIZER TREATMENT Stat CARDIO 09/11/18 17:34 Completed O2 [ED APPLY O2] .ONCE EMERGENCY 09/11/18 17:37 Active CBC W/ AUTO DIFF Stat LAB 09/11/18 17:45 Completed COMPREHENSIVE METABOLIC PANEL Stat LAB 09/11/18 17:45 Completed Albuterol Sulfate 0.083% Neb [Albuterol 0.083% Neb] MEDS 09/11/18 17:32 Discontinued 1 vial NEB ONCE STA Sodium Chloride 0.9% [Sodium Chloride] 500 ml MEDS 09/11/18 18:09 Active IV BOLUS CHEST, 2 VIEWS PA & LAT Stat RADS 09/11/18 17:35 Completed Medications Generic Name Dose Route Start Last Admin Trade Name Freq PRN Reason Stop Dose Admin Sodium Chloride 500 mls @ 500 mls/hr 09/11/18 18:09 09/11/18 18:12 Sodium Chloride IV 09/11/18 19:08 500 mls/hr BOLUS STA Administration Discontinued Medications Generic Name Dose Route Start Last Admin Trade Name Freq PRN Reason Stop Dose Admin Albuterol Sulfate 1 vial 09/11/18 17:32 09/11/18 18:20 Albuterol 0.083% Neb NEB 09/11/18 17:33 1 vial ONCE STA Administration Vital Signs: Temp Pulse Resp BP Pulse Ox 09/11/18 16:34 96.4 F L 115 H 20 130/103 H 99 Departure - Departure Time of Disposition: 18:31 Disposition: HOME SELF-CARE Discharge Problem: Inhalation injury Instructions: Acute Bronchitis (ED) Condition: Good Pt referred to PMD for follow-up: Yes IPMP verified?: No Allergies/Adverse Reactions: Allergies NSAIDS (Non-Steroidal Anti-Inflamma Adverse Reaction (Verified 09/11/18 16:46) states "cannot take due to colitis" Home Medications: Ambulatory Orders 1 [No Reported Medications] 09/11/18 Disposition Discussed With: Patient, Family
[2018-09-11] MEDS ORDERED: SODIUM BICARBONATE 8.4% NEB ONE ×2 (17:15→18:00)
[2018-09-11] MEDS ORDERED: ALBUTEROL 0.083% NEB NEB STA (17:32)
[2018-09-11] MEDS ORDERED: SODIUM CHLORIDE 500 ML IV STA (18:09)
--- NOTE | 2018-09-11 18:10 | DI ---
Exam: Two-view chest x-ray. Date: 09/11/2018. Comparison: 06/22/2016. HISTORY: Chemical inhalation. FINDINGS: No acute osseous abnormalities are seen. The lungs are clear with calcified granulomas. Cardiac silhouette and pulmonary vasculature are within normal limits. Impression: No acute intrathoracic findings. Old granulomatous disease.
== END 2018-09-11 19:26 | disposition home or self-care (01) ==
LOC: ED 16:27
DX: T59.4X1A Toxic effect of chlorine gas, accidental (unintentional), initial encounter (principal); R06.02 Shortness of breath; R05 Cough; F17.210 Nicotine dependence, cigarettes, uncomplicated
CPT/HCPCS: 36415; 80053; 85025; 94640; 96360; 99283